=== PATIENT | female | born 2000 | race Caucasian/White ===

== ENCOUNTER 2025-09-05 14:35 | Outpatient (AMB) | payer MEDICAID, SELFPAY ==
[2025-09-05 14:54] VITALS: BP 129/84; PULSE 98; RESP 18; TEMP 36.6; O2SAT 99; BMI 26.7
--- NOTE | 2025-09-05 14:54 | AMB.GYNCLNOT ---
Vital Signs 09/05/25 14:54 Height 1.57 m Height Method Stated Weight 66.281 kg Weight Measurement Method Standing Scale BMI 26.7 BP 129/84 Blood Pressure Source Automatic Cuff Blood Pressure Location Right Upper Arm Position Sitting Respiration 18 Pulse 98 Pulse Source Monitor Temp 97.9 F Temp Source Temporal Artery Scan Pulse Oximetry (%) 99 Oxygen Delivery Method Room Air Allergies/Home Meds Allergies & Medications Allergies NKA* Allergy (Uncoded 09/05/25 14:55) Intake Visit Data Collection New Patient or Established: New Patient (never been to [facility]) Reason for Visit:: REFFERAL HPV POSITIVE Seen by Clinical Staff ONLY (RN/MA): No Language: The patient actually speaks fluent Pashto. 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 Do You Feel Safe at Home: Yes Authorities Contacted: N/A PCP or OBGYN visit in last 3 months: No Hx Now: No Are you currently on any form of Control: No Last menstrual period: 08/26/25 Pain Present Currently: No Pain Scale Used: Babb-Zapata/Numerical Pain scale:: 0 Smoking Status Smoking Status: Never smoker Immunizations Flu Vaccine in the Last 12 Months: No Flu Vaccine Exclusion Criteria: No Exclusion Criteria Education Consultant history Education Consultant History Menstrual regularity: regular Flow: normal Monthly: Yes How many days does period last: 3 Age at menarche: 17 Currently sexually active: Yes Additional comments: Patient is sexually active. She does not desire contraception. She was on contraception in the past for a history of heavy cycles. Her cycles are regular 28 to 31 days apart lasting 3 days. No pain with intercourse or with her cycles. She states her and her boyfriend have been not preventing but not really trying for the last 6 months. She is unsure whether or not she had the HPV vaccine but she thinks she might have. 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 She is healthy. Questionnaires Covid-19 Vaccine Questionnaire Has patient been vacinated for Covid-19 Have you been vacinated for Covid-19: No PHQ-9 PHQ-2 Over the last 2 weeks, how often have you been bothered by any of the following problems? 1. Little interest or pleasure in doing things: not at all 2. Feeling down, depressed, or hopeless: not at all Total score: 0 PHQ-9 3. Trouble falling or staying asleep, or sleeping too much: Not at all 4. Feeling tired or having little energy: Not at all 5. Poor appetite or overeating: Not at all 6. Feeling bad about yourself - or that you are a failure or have let yourself or your family down: Not at all 7. Trouble concentrating on things, such as reading the newspaper or watching television: Not at all 8. Moving or speaking so slowly that other people could have noticed? - Or the opposite - being so fidgety or restless that you have been moving around a lot more than usual: not at all 9. Thoughts that you would be better off or of hurting yourself in some way: Not at all Total score: 0 If you checked off any problems, how difficult have these problems made it for you to do your work, take care of things at home, or get along with other people?: not difficult at all Source: Developed by Drs. James Chacon, Traci Muñiz, Irineo Mendez and colleagues, with an educational linwood from [employer]. Depression screen completed yes Social History Living Situation History Marital Status: Single Lives With: Family Housing: House Tobacco History Smoking Status: Never smoker Second Hand Smoke Exposure: No Alcohol History Alcohol Intake: Never Domestic Abuse History Do You Feel Safe at Home: Yes History of Present Illness HPI Narrative The patient is a pleasant 25-year-old G0 who presents as a referral to discuss abnormal Pap smears. Her first Pap was in November 28 and was ASCUS with positive HPV. She was negative for HPV 16 and 18. She was not treated at the time. She had no colposcopy, biopsies, or cryotherapy. She had a repeat Pap smear performed in May 2025 revealing a normal Pap smear, negative HPV 16 and 18 but positive HPV other subtypes. The patient states that she thinks she had the HPV vaccine when she was younger. She states her partner in 2022 cheated on her and she broke up with him and has has had the same partner for a while since then. She is sexually active not using condoms or contraception. She is not preventing but is not really trying either. Her cycles are regular monthly lasting 3 days. She has no pain with intercourse. She has no postcoital bleeding abnormal discharge or odor. She wanted reassurance that she could get someday. She was a little concerned because she is not using contraception and has not gotten but she is not really actively trying either. Her boyfriend is her age with no medical problems. Review of Systems Constitutional Comments: No weight loss no weight gain. She has normal cycles 28 to 31 days apart. 3 days of flow. No pain with intercourse. No dysmenorrhea. She was on contraception when she was younger to keep her cycles light. Patient has not had a pelvic ultrasound. No abnormal discharge or odor. No history of known STDs besides HPV. She thinks she had the HPV vaccine but she is not at 100% sure. Exam Narrative Physical exam: Limited physical exam was performed as this was mostly a counseling session. General Limitations: no limitations General Appearance: alert, in no apparent distress, comfortable, cooperative, healthy appearing and well groomed Neck Neck exam: Present normal inspection, full ROM and trachea midline Chest Chest inspection: Present normal inspection and symmetric chest wall rise Neuro Neurological exam: Present alert, oriented X3 and CN II-XII intact Psych Psychiatric exam: Present normal affect and normal mood Skin Skin exam: Present warm, dry, intact and normal color Results Objective Laboratory: Paps obtained from [facility]. 11/27/2022: ASCUS positive HPV. Negative HPV 16 and 18 05/23/2025 Pap: Negative for intraepithelial lesion or malignancy positive for HPV Negative HPV 16 and 18 No gonorrhea chlamydia testing were provided on the Pap smears. Office Procedures [facility] LOC & Office Proc's Nursing/Assessment Patient Status: Established Patient OB Clinic Nursing Assessment: Medication Reconciliation, Update PMH in EMR and Vital Signs OB Clinic Coordination of Care: Complex Care and Chronic Disease 1-5, Education Complex Pt/Fam, Consent,records obtained, informed consent, Lab and Imaging orders, Results/Orders obtained and Staff clarify orders Established Patient Charge Established Patient Point Assignment: 110 Established Patient Point Charge: EP Level 3 (80-115) Assessment & Plan Diagnosis / Problem List (1) HPV test positive: Status: Acute Assessment and Plan: We had a discussion about Pap smears. About false negative and false positive Paps. we discussed HPV. We discussed that approximately 80% of cervical cancers are associated with HPV 16 or 18. The remaining 20% of cervical cancers are associated with one of the other many other subtypes of high risk HPV. We discussed the fact that her Pap was normal most recently and she was positive for HPV. But negative for 16 or 18. I would recommend repeating a Pap smear in 1 year with cotesting to HPV. We did discuss the fact we do not usually cotest young patients for HPV under 30 as HPV infections in this age group are usually transient. Since we know she has been exposed to HPV, I would recommend repeating a Pap with cotesting in 1 year. I do not think the patient needs a colposcopy, biopsies or other treatment at this time. All questions were answered. The patient did want to discuss a potential . We discussed normal cycles. We discussed infertility which is defined as no in 1 year of trying. Patient has not really been aggressively trying to get . If she is trying, I would recommend vitamins, I would recommend midcycle intercourse every other day from about day 10 today 18. Patient has 1 of those rings that tells her when she is ovulating. I told her that her boyfriend should avoid marijuana and other types of drugs that could possibly affect sperm production. If the patient is not within 1 year of trying, we should proceed with a workup for infertility. We explained that 50% of infertility is usually something to do with the female and 40% is due to a male factor. 10% of the time there is unexplained infertility. If she feels the need to pursue a workup, she can ask her nurse practitioner at [facility] to order an ultrasound and possibly some lab work including a thyroid. If that workup is normal, she could proceed with semen analysis for her boyfriend. The patient will think about this. She will follow-up for a Pap in May 2026 either at our clinic or at [facility]. Additional Plan Follow Up: 9 Months
== END 2025-09-05 15:21 | disposition home or self-care (01) ==
PROVIDERS: Supervising Provider Obstetrics & Gynecology; Visit Provider Obstetrics & Gynecology
DX: R87.810 Cervical high risk human papillomavirus (HPV) DNA test positive (principal)
CPT/HCPCS: 99213; G0463